=== PATIENT | male | born 1940 | race Caucasian/White ===

== ENCOUNTER 2021-05-07 16:56 | Emergency (ER) | payer MEDICARE ==
[2021-05-07] MEDS ORDERED: methylPREDNISolone SOD SUCCI 125 MG/2 ML VIAL IM ONE (20:14)
[2021-05-07] MEDS ORDERED: CYCLOBENZAPRINE 10 MG TAB PO STA (20:14)
[2021-05-07] MEDS ORDERED: HYDROcodone/APAP 5-325MG 1 EACH TAB PO STA (20:14)
--- NOTE | 2021-05-07 20:17 | ED ---
General Adult HPI - General Source: patient Mode of arrival: ambulatory Limitations: no limitations <Nevaeh Merida - Last Filed: 05/07/21 20:33> <Anita Mercer - Last Filed: 05/14/21 15:13> - General Chief complaint: Back Pain/Injury Stated complaint: Back Pain Time Seen by Provider: 05/07/21 19:43 - History of Present Illness Initial comments: 80 year-old male patient presents to the emergency department for evaluation of right low back pain with radiation down the right leg. Patient states that he has been having problems with back pain for the last couple of years. States he had back surgery last year on 04/29 and has been having problems since. States that he is taking pain medication which includes, tramadol, skelaxin, and neurontin without any relief. States that he has tried to contact his surgeon and his new back specialist but he is getting nowhere. He no longer wants to be seen by his physicians at [facility], he wants to get "new eyes" to look at him. He denies any change to his pain in the last couple of months. Denies any saddle anesthesia, loss of bowel or bladder control, numbness or tingling to the lower extremities. Denies any abdominal pain, fever, or chills. Denies any new injury. (Nevaeh Merida) - Related Data Previous Rx's Medication Instructions Recorded Cyclobenzaprine [Flexeril] 10 mg PO TID #15 tab 05/07/21 HYDROcodone/APAP 5-325MG [[place] 5] 1 each PO Q6HR PRN #12 tab 05/07/21 predniSONE 50 mg PO DAILY #5 tablet 05/07/21 Allergies Allergy/AdvReac Type Severity Reaction Status Date / Time No Known Allergies Allergy Verified 05/07/21 18:55 Review of Systems ROS Other: All systems not noted in ROS Statement are negative. <Nevaeh Merida - Last Filed: 05/07/21 20:33> ROS Other: All systems not noted in ROS Statement are negative. <Anita Mercer - Last Filed: 05/14/21 15:13> ROS Statement: Those systems with pertinent positive or pertinent negative responses have been documented in the HPI. Past Medical History History of Any Multi-Drug Resistant Organisms: None Reported Additional Past Surgical History / Comment(s): back surgery Past Psychological History: No Psychological Hx Reported Smoking Status: Never smoker Past Alcohol Use History: None Reported Past Drug Use History: None Reported <Nevaeh Merida - Last Filed: 05/07/21 20:33> General Exam Limitations: no limitations General appearance: alert, in no apparent distress, other (This is a well- developed, well-nourished elderly male patient in no acute distress. Vital signs upon presentation are temperature 98.1F, pulse 64, respirations 19, blood pressure 158/75, pulse ox 96% on room air.) Respiratory exam: Present: normal lung sounds bilaterally. Absent: respiratory distress, wheezes, rales, rhonchi, stridor Cardiovascular Exam: Present: regular rate, normal rhythm, normal heart sounds. Absent: systolic murmur, diastolic murmur, rubs, gallop, clicks GI/Abdominal exam: Present: soft, normal bowel sounds. Absent: distended, tenderness, guarding, rebound, rigid Extremities exam: Present: normal inspection, full ROM, normal capillary refill, other (Skin to the lower extremities is pink, warm, dry. Cap refill less than 3 seconds. Pedal and posttibial pulses 2+. ). Absent: tenderness, pedal edema, joint swelling, calf tenderness Neurological exam: Present: alert, oriented X3, CN II-XII intact, other (Strength to the lower extremities is 5/5.) Psychiatric exam: Present: normal affect, normal mood Skin exam: Present: warm, dry, intact, normal color. Absent: rash <Nevaeh Merida - Last Filed: 05/07/21 20:33> Course Vital Signs 05/07/21 05/07/21 18:51 20:34 Temperature 98.1 F 98.0 F Pulse Rate 64 67 Respiratory 19 20 Rate Blood Pressure 158/75 156/79 O2 Sat by Pulse 96 97 Oximetry Medical Decision Making <Nevaeh Merida - Last Filed: 05/07/21 20:33> <Anita Mercer - Last Filed: 05/14/21 15:13> - Medical Decision Making 80-year-old male patient presented to the emergency department today for evaluation of right low back pain with radiation down the right leg. Physical examination is unremarkable. He is neurologically intact. No focal deficits. Has no concerning symptoms for cauda equina. Patient came to the emergency department today hoping to have a new evaluation by new providers due to being unhappy with his current back specialist. I did review recent x-rays of the hip, lumbar spine which showed no acute abnormalities. I reviewed MRI from December 2020 which did show severe degenerative disc disease with severe spinal canal stenosis and disc bulging. I did discuss these results with the patient and discussed that his pain could be related to these findings. We will change his pain medication and a course of steroids. He is recommended to local spine specialty and pain management. Daughter is present. He will be discharged to follow-up as soon as possible. Return parameters were discussed in detail. He verbalizes understanding and agrees with this plan. Case discussed with my attending Dr. Mercer. (Nevaeh Merida) I was available for consultation in the emergency department. The history and physical exam were done by the midlevel provider. I was consulted for this patients care. I reviewed the case with the midlevel provider and based on their presentation of the patient, I agree with the assessment, medical decision making and plan of care as documented. Chart was dictated using [employer] dictation software. Attempts were made to correct any dictation errors however some typographical errors may persist. (Anita Mercer) Disposition Is patient prescribed a controlled substance at d/c from ED?: No Time of Disposition: 20:16 <Nevaeh Merida - Last Filed: 05/07/21 20:33> <Anita Mercer - Last Filed: 05/14/21 15:13> Clinical Impression: Lumbar radiculopathy, right, Back pain Disposition: HOME SELF-CARE Condition: Good Instructions (If sedation given, give patient instructions): Lumbar Radiculopathy (ED), Chronic Back Pain (DC) Additional Instructions: Stop the Skelaxin and Ultram. Start to new medications. Continue taking Neurontin. Follow-up with the specialist as soon as possible. Return for any new, worsening, or concerning symptoms. Prescriptions: Cyclobenzaprine [Flexeril] 10 mg PO TID #15 tab HYDROcodone/APAP 5-325MG [[place] 5] 1 each PO Q6HR PRN #12 tab PRN Reason: Pain predniSONE 50 mg PO DAILY #5 tablet Referrals: Agusto Levi MD [Primary Care Provider] - 1-2 days Manas Garcia DO [Doctor of Osteopathic Medicine] - 1-2 days Glen Akins MD [STAFF PHYSICIAN] - 1-2 days
[2021-05-07 20:37] VITALS: BP 156/79; PULSE 67; RESP 20; TEMP 98
== END 2021-05-07 20:42 | disposition home or self-care (01) ==
LOC: EC 16:56
DX: M54.16 Radiculopathy, lumbar region (principal)
CPT/HCPCS: 99283 ×2; 96372 ×2; J2930

== ENCOUNTER → 2021-05-20 | Outpatient (CLI) | payer MEDICARE ==
--- NOTE | 2021-05-20 12:20 | P.PAINCN ---
History of Present Illness - Reason for Consult Consult date: 05/20/21 - Chief Complaint Low back pain - History of Present Illness Petros and his 80-year-old male presenting to clinic today for initial evaluation for low back pain. Dr. Gilbert's and is referred into her office for treatment of his chronic low back pain. He reports the onset was no injuries pain is just increased over time. Most his pain is located on his right side in his buttocks area with occasional radiation down to the right lateral portion of his thigh. He describes it as a sharp dull achy sensation with occasional numbness. Pain is aggravated with increased standing and walking. Pain is relieved with rest and his medications. He is currently prescribed gabapentin as well as some [place]. In the past he's had physical therapy with little benefit. He rates his pain as an 8 out of 10 on average. Approximate 1 year ago he had laminectomy in the lumbar region bilateral L4 5 and right sided L5-S1. She reports he's had significant pain since that surgery. Patient also stated that after surgery while still under anesthesia in an episode of cardiac arrest which was he was revived. He describes no bowel or bowel dysfunction, he denies any saddle anesthesia, or any other red flag symptoms. Past Medical History Additional Past Medical History / Comment(s): back pain,spouse not sure of heart problems-said "no problems prior to back surgery" History of Any Multi-Drug Resistant Organisms: None Reported Past Surgical History: AICD, Back Surgery Additional Past Surgical History / Comment(s): back surgery Past Anesthesia/Blood Transfusion Reactions: No Reported Reaction Additional Past Anesthesia/Blood Transfusion Reaction / Comm: no hx blood transfusion Type of Cardiac Device: AICD Device Placement Date:: unk Past Psychological History: No Psychological Hx Reported Smoking Status: Former smoker Past Alcohol Use History: Occasional Additional Past Alcohol Use History / Comment(s): quit smoking years ago Past Drug Use History: None Reported - Past Family History Mother Family Medical History: No Reported History Medications and Allergies Home Medications Medication Instructions Recorded Confirmed Type Amitriptyline HCl [Elavil] 25 mg PO HS 05/20/21 05/20/21 History Apixaban [Eliquis] 5 mg PO BID 05/20/21 05/20/21 History Gabapentin [Neurontin] 100 mg PO Q6HR 05/20/21 05/20/21 History Metaxalone [Skelaxin] 800 mg PO TID 05/20/21 05/20/21 History Metoprolol Succinate [Toprol XL] 25 mg PO DAILY 05/20/21 05/20/21 History Sertraline [Zoloft] 50 mg PO DAILY 05/20/21 05/20/21 History traMADol HCl [Ultram] 50 mg PO Q6HR PRN 05/20/21 05/20/21 History Allergies Allergy/AdvReac Type Severity Reaction Status Date / Time No Known Allergies Allergy Verified 05/18/21 15:30 Physical Exam Physical Examinations : -Constitutiona : Cooperative , not in acute distress . -HEENT : nech : supple , no Lymphadenopathy , normal thyroid size . : eyes : no ptosis , no icterus, no photophobia . - neurologic : Cranial nerve II to XII intact , no focal neurological deffecit . -psychatric : alert , oriented X 3 , appropriate affect , intact judgment and insight . -Lymphatic : no Lymphadenopathy . - musculoskeltal : Lumber spine moter stegnth lower extremities ,thigh and legs 5/5 Right side , 5/5 Left side deep tendon reflexes : normal Knee Jerk , normal ankle Jerk lumber facet Loading Test =positive Right , positive Left Range of motion of the lumbar spine Flexion 30 degrees, extension 10 degrees strait leg raising test = negative Fabere test= negative Minute tenderness over the Sacroiliac joint on the Right , and Left sides Gaenslen test= negative Seated flexion test= Carissa Distraction test= negative bilaterally Sacroiliac compression test= negative bilaterally Lumbar paraspinal muscles tender to palpation bilaterally Well-healed lumbar surgical scar Assessment and Plan Assessment: Assessment: 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 -Tobacco use is negative -Patient's has not received pneumococcal vaccine. -Advanced care planning discussed, patient not eligible. -Opiate contract not signed. -Pain positive and follow-up visit/procedure is scheduled. -Patient's blood pressure measured [156/73 ] , and documented in the record ,and patient will follow up with the primary care. -Patient's weight was measured and body mass index above the normal limits and counseling was done. and patient instructed to follow-up with the primary care physician. -Patient was not identified as an unhealthy alcohol user Time with Patient: Greater than 30 PQRS Measure Charge Sheet - Pain Location Back Non-Pharmacological Interventions: Home Exercise, Inactivity, Physical Therapy, Stretching Pharmacological Interventions: Medication, PRN Medication PQRS Narrative: Scale Used Numeric (1 - 10) Hx Alcohol Use (MH) Yes Home Medications: Ambulatory Orders Amitriptyline HCl [Elavil] 25 mg PO HS 05/20/21 Apixaban [Eliquis] 5 mg PO BID 05/20/21 Gabapentin [Neurontin] 100 mg PO Q6HR 05/20/21 Metaxalone [Skelaxin] 800 mg PO TID 05/20/21 Metoprolol Succinate [Toprol XL] 25 mg PO DAILY 05/20/21 Sertraline [Zoloft] 50 mg PO DAILY 05/20/21 traMADol HCl [Ultram] 50 mg PO Q6HR PRN 05/20/21
[2021-05-20 12:50] VITALS: BP 156/84; PULSE 60; RESP 18
== END ==
LOC: PNWHC3 10:05
PROVIDERS: ATTEND Student in an Organized Health Care Education/Training Program
DX: M47.816 Spondylosis without myelopathy or radiculopathy, lumbar region (principal); M96.1 Postlaminectomy syndrome, not elsewhere classified
CPT/HCPCS: 99211

== ENCOUNTER → 2021-05-25 | Outpatient (CLI) | payer MEDICARE ==
--- NOTE | 2021-05-26 17:01 | CT ---
EXAMINATION TYPE: CT lumbar spine wo con DATE OF EXAM: 05/25/2021 COMPARISON: Radiograph 05/14/2021 HISTORY: 80-year-old male Low back pain, pain to right buttock. TECHNIQUE: Contiguous axial scanning of the lumbar spine without IV contrast. Coronal and sagittal re constructions performed. CT DLP: 1432.6 mGycm Automated exposure control for dose reduction was used. FINDINGS: Slight dextroconvex curvature of the lumbar spine. Vertebral body heights are preserved. Hypertrophic facet arthropathy mid to lower lumbar spine. There are bilateral L5 pars interarticulari s defects demonstrated grade 1 anterolisthesis at L4-L5. Mild multilevel degenerative disc disease with disc bulging throughout. This is superimposed on a component of mild congenital spinal canal narrowing made and lower lumbar s pine with AP canal dimension of 1.1 cm. At L3-L4, changes contribute to moderate narrowing of the spinal canal. There is moderate left and mi ld right neuroforaminal stenosis. At L4-L5, moderate narrowing of the spinal canal. There is moderate right greater than left neurofora lesvia stenosis. At L5-S1, posterior disc bulge may abut the traversing S1 nerve roots on both sides. There is moderat e to severe right and [id number]-zh-[id number] left neuroforaminal stenosis. No significant spinal canal sten osis. There may be a small hiatal hernia partially visualized. Nonspecific lobulated lesion posterior right kidney measuring 2.0 cm. Liver ultrasound can attempt fu rther characterization. Sigmoid diverticulosis. IMPRESSION: 1. SLIGHT DEXTROCONVEX CURVATURE/SCOLIOSIS OF THE LUMBAR SPINE. 2. HYPERTROPHIC FACET ARTHROPATHY MID TO LOWER LUMBAR SPINE ALONG WITH BILATERAL L4 PARS DEFECTS WITH GRADE 1 ANTEROLISTHESIS AT L4-L5. 3. 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 4. THIS CONTRIBUTES TO MODERATE SPINAL CANAL STENOSIS AT L3-L4 AND L4-L5. 5. VARIABLE NEUROFORAMINAL STENOSES MID AND LOWER LUMBAR SPINE OUTLINED ABOVE. DISC BULGE AT L5-S1 MAY ABUT THE TRAVERSING S1 NERVE ROOTS ON BOTH SIDES. 6. NONSPECIFIC 2.0 CM LOBULATED POSTERIOR RIGHT LIVER LOBE LESION. LIVER ULTRASOUND RECOMMENDED TO AT TEMPT FURTHER CHARACTERIZATION.
== END | disposition home or self-care (01) ==
LOC: RADCTMAIN 13:32
PROVIDERS: ATTEND Orthopaedic Surgery
DX: M48.061 Spinal stenosis, lumbar region without neurogenic claudication (principal); M43.16 Spondylolisthesis, lumbar region; M47.816 Spondylosis without myelopathy or radiculopathy, lumbar region
CPT/HCPCS: 72131

== ENCOUNTER → 2021-06-16 | Outpatient (CLI) | payer MEDICARE ==
[2021-06-16 16:20] LABS: African American GFR (CKD) >90 (>60 ml/min/1.73 sqM); Blood Urea Nitrogen 18 mg/dL (9-20); Non-African American GFR(CKD) 79 (>60 ml/min/1.73 sqM)
--- NOTE | 2021-06-17 07:49 | CT ---
EXAMINATION TYPE: CT angio chest DATE OF EXAM: 06/16/2021 COMPARISON: None HISTORY: Personal history of PE. CT DLP: 419.7 mGycm CONTRAST: CT chest with contrast and 3D reconstruction with MIP imaging is performed with IV Contrast, patient injected with 100 mL of Isovue 370. Contrast-enhanced CT of the chest was performed through the course of the pulmonary arteries with filemon g and mediastinal window settings submitted. 3D reconstruction with MIP imaging was also performed. PULMONARY ARTERIES: The pulmonary arteries and their major tributaries are patent. I do not see mynor dence for sizable filling defect to suggest pulmonary embolic process. LUNGS: The lungs are clear and free of infiltrate. No evidence for atelectasis. No pulmonary nodule or mass is detected. No pleural effusion. MEDIASTINUM: Thoracic aorta is of normal caliber,however, evaluation is limited given timing of the contrast bolus. If there is concern for thoracic aortic pathology consider SUYAPA. Correlate clinicall y . The heart is not enlarged. No evidence for mediastinal mass. No mediastinal lymph nodes greater than 1cm. HILAR STRUCTURES: No evidence for mass. No hilar lymph nodes greater than 1 cm. UPPER ABDOMEN: No significant abnormality is seen. IMPRESSION: 1. No evidence for Pulmonary embolism at this time.
== END | disposition home or self-care (01) ==
LOC: RADCTMAIN 15:04
PROVIDERS: ATTEND Internal Medicine
DX: Z86.711 Personal history of pulmonary embolism (principal)
CPT/HCPCS: 82565; 84520; 71275; 36415; Q9967

== ENCOUNTER 2021-06-25 10:40 | Day surgery (SDC) | payer MEDICARE ==
[2021-06-23 17:11] VITALS: BMI 32.3
[2021-06-25 11:42] VITALS: TEMP 98
[2021-06-25] MEDS ORDERED: LACTATED RINGERS 1,000 ML IV ONE (11:43)
--- NOTE | 2021-06-25 13:14 | FL ---
EXAMINATION TYPE: FL guided pain mgmt statistic DATE OF EXAM: 06/25/2021 HISTORY: Fluoroscopy time 1 seconds of fluoroscopy provided. IMPRESSION: 1. Fluoroscopy time.
[2021-06-25] MEDS ORDERED: LACTATED RINGERS 1,000 ML IV SCH (13:15)
[2021-06-25] MEDS ORDERED: IV FLUID CONTINUATION 600 ML IV ONE (13:15)
[2021-06-25 13:35] VITALS: BP 135/76; PULSE 82; RESP 18
--- NOTE | 2021-06-25 14:11 | P.PCN ---
Date of Procedure: 06/25/21 Description of Procedure: Patient scheduled for L4-L5 epidural steroid injection under fluoroscopic guidance but patient had laminectomy at lumbar L4-L5, and right side L5-S1 levels on 04/29/2020 at [facility] as per patient. Caudal epidural procedure discussed with the patient, due to insurance issues procedure was canceled. L4-L5 epidural steroid injection was canceled due to increased risk of dural puncture secondary to scarring around that area. Discussed with patient, and family.
== END 2021-06-25 13:59 | disposition home or self-care (01) ==
LOC: ORPAIN 10:40
DX: M51.16 Intervertebral disc disorders with radiculopathy, lumbar region (principal); Z53.9 Procedure and treatment not carried out, unspecified reason

== ENCOUNTER → 2021-07-16 | Outpatient (CLI) | payer MEDICARE ==
[2021-07-16 14:36] VITALS: BP 137/77; PULSE 82; RESP 18; TEMP 98
--- NOTE | 2021-07-16 15:03 | P.PN ---
Subjective Progress Note Date: 07/16/21 This is 81-year-old male , she of chronic severe low back pain patient had lumbar laminectomy surgery , he continued to have severe low back pain . Most his pain is located on his right side in his buttocks area with occasional radiation down to the right lateral portion of his thigh. He describes it as a sharp dull achy sensation with occasional numbness. Pain is aggravated with increased standing and walking. Pain is relieved with rest and his medications. He is currently prescribed gabapentin as well as some [place]. In the past he's had physical therapy with little benefit. He rates his pain as an 8 out of 10 on average. Approximate 1 year ago he had laminectomy in the lumbar region bi lateral L4 5 and right sided L5-S1. She reports he's had significant pain since that surgery. Patient also stated that after surgery while still under anesthesia in an episode of cardiac arrest which was he was revived. He describes no bowel or bowel dysfunction, he denies any saddle anesthesia, or any other red flag symptoms. Physical Examinations : -Constitutiona : Cooperative , not in acute distress . -HEENT : nech : supple , no Lymphadenopathy , normal thyroid size . : eyes : no ptosis , no icterus, no photophobia . - neurologic : Cranial nerve II to XII intact , no focal neurological deffecit . -psychatric : alert , oriented X 3 , appropriate affect , intact judgment and insight . -Lymphatic : no Lymphadenopathy . - musculoskeltal : Lumber spine moter stegnth lower extremities ,thigh and legs 5/5 Right side , 5/5 Left side deep tendon reflexes : normal Knee Jerk , normal ankle Jerk lumber facet Loading Test =positive Right , positive Left Range of motion of the lumbar spine Flexion 30 degrees, extension 10 degrees strait leg raising test = negative Fabere test= negative Minute tenderness over the Sacroiliac joint on the Right , and Left sides Gaenslen test= negative Seated flexion test= Carissa Distraction test= negative bilaterally Sacroiliac compression test= negative bilaterally Lumbar paraspinal muscles tender to palpation bilaterally Well-healed lumbar surgical scar Assessment and Plan Assessment: 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
== END ==
LOC: PNWHC3 12:48
PROVIDERS: ATTEND Specialist
DX: M47.816 Spondylosis without myelopathy or radiculopathy, lumbar region (principal); M96.1 Postlaminectomy syndrome, not elsewhere classified
CPT/HCPCS: 99211

== ENCOUNTER 2021-09-01 12:51 | Day surgery (SDC) | payer MEDICARE ==
[2021-08-28 15:51] VITALS: BMI 34.5
[2021-09-01 13:13] VITALS: RESP 16; TEMP 98.6
[2021-09-01] MEDS: LACTATED RINGERS 1,000 ML IV SCH ×2 (13:13→13:41)
[2021-09-01] MEDS ORDERED: fentaNYL (PF) 50 MCG/ML 2 ML AMP ONE (13:42)
[2021-09-01] MEDS ORDERED: SODIUM CHLORIDE 0.9% (PF) 10 ML VIAL ONE (13:42)
[2021-09-01] MEDS ORDERED: MIDAZOLAM 2 MG/2 ML VIAL ONE (13:42)
[2021-09-01] MEDS ORDERED: methylPREDNISolone ACETATE 40 MG/ML 1 ML VIAL ONE (13:42)
[2021-09-01] MEDS ORDERED: IOPAMIDOL M200 10 ML VIAL ONE (13:42)
--- NOTE | 2021-09-01 14:02 | P.PCN ---
Date of Procedure: 09/01/21 Procedure(s) Performed: PREOP DIAGNOSIS: 1- Lumbar postlaminectomy syndrome. POSTOP DIAGNOSIS:1- Lumbar postlaminectomy syndrome. PROCEDURE: 1-Caudal epidural steroid injection with epidurolysis and epidurogram under fluoroscopic guidance. (Fluoroscopy images available in the radiology Department ) 2-caudal epidurogram. ANESTHESIA: Local with 1% lidocaine 3 ml ,and moderate sedation, with Versed 2 mg and fentanyl 50 g. EBL: Minimal. PROCEDURE INDICATION: The patient with post-laminectomy syndrome with low back pain and radiculopathy radiating down in both legs, here for a caudal epidural steroid injection with epidurolysis. PROCEDURE DESCRIPTION: The patient was seen and identified in the preoperative area. Risks, benefits, complications, and alternatives were discussed with the patient. The patient agreed to proceed with the procedure and signed the consent. IV was started, and vital signs were stable. Patient was taken to the OR and time out was completed. The patient was placed in the prone position on procedure table and a pillow was placed under the abdomen to reduce lumbar lordosis. The lumbosacral area was prepped and draped in the usual sterile fashion. Vital signs were closely monitored during the procedure. lateral view and the anterior-posterior plates of the sacrum were identified with infiltration of the area overlying the sacral hiatus with 1% lidocaine .A 17 gauge RK epidural needle was used to advance through the sacral hiatus into the caudal epidural space. Omnipaque 180 dye. 2cc was injected and the position of the needle was verified to be in the midline. A Racz catheter was introduced into the epidural space and was advanced towards the L3-4 interspace under direct fluoroscopic guidance. Multiple passes were made with the catheter for lysis of epidural adhesions. Depo-Medrol 60 mg with 3ml of preservative free Lidocaine 1% and 5 ml of preservative free normal saline was injected slowly. Additional spread was seen to L3 under fluoroscopy. The needle and the catheter were withdrawn intact. EPIDUROGRAM: Omnipaque 180 mg dye 2 ml was injected with spread of the dye into the caudal epidural space and with spread cutoff at L3-4 prior to epidurolysis. Post epidurolysis dye 2 ml was injected and spread was seen to L3-4.There was further spread of the solution together with the dye above the L3 COMPLICATIONS: None. DISPOSITION / PLANS: The patient was placed in a supine position and transferred to the recovery area in a stable condition for observation and was discharged from the recovery room after meeting discharge criteria. Home discharge instructions given to the patient by the staff. The patient was reexamined prior to discharge. The patient will schedule a follow up in the clinic in 2-4 weeks.
--- NOTE | 2021-09-01 14:23 | FL ---
EXAMINATION TYPE: FL guided pain mgmt statistic DATE OF EXAM: 09/01/2021 HISTORY: Fluoroscopy time 3 seconds of fluoroscopy provided. IMPRESSION: 1. Fluoroscopy time.
[2021-09-01 14:27] VITALS: BP 164/75; PULSE 74
[2021-09-01] MEDS ORDERED: IV FLUID CONTINUATION 1,000 ML IV ONE (14:29)
== END 2021-09-01 14:37 | disposition home or self-care (01) ==
LOC: ORPAIN 12:51
PROVIDERS: ATTEND Specialist
DX: M48.061 Spinal stenosis, lumbar region without neurogenic claudication (principal); M96.1 Postlaminectomy syndrome, not elsewhere classified; I25.10 Atherosclerotic heart disease of native coronary artery without angina pectoris
CPT/HCPCS: 62264; J2250; J1030; J3010; Q9966; C1894; 99152

== ENCOUNTER 2021-10-15 12:06 | Day surgery (SDC) | payer MEDICARE ==
[2021-10-13 10:05] VITALS: BMI 35.9
[~2021-10-15 12:06] MED LIST: LIDOCAINE 1% (10MG/ML) FOR IV START INTRADERMA PRN
[2021-10-15 13:07] VITALS: TEMP 98.7
[2021-10-15] MEDS: LACTATED RINGERS 1,000 ML IV SCH ×2 (13:13→13:24)
[2021-10-15] MEDS ORDERED: fentaNYL (PF) 50 MCG/ML 2 ML AMP ONE (13:26)
[2021-10-15] MEDS ORDERED: methylPREDNISolone ACETATE 40 MG/ML 1 ML VIAL ONE (13:26)
[2021-10-15] MEDS ORDERED: IOPAMIDOL M200 10 ML VIAL ONE (13:26)
[2021-10-15] MEDS ORDERED: MIDAZOLAM 2 MG/2 ML VIAL ONE (13:26)
--- NOTE | 2021-10-15 13:42 | P.PCN ---
Date of Procedure: 10/15/21 Procedure(s) Performed: PREOP DIAGNOSIS: 1- Lumbar postlaminectomy syndrome. POSTOP DIAGNOSIS:1- Lumbar postlaminectomy syndrome. PROCEDURE: 1-Caudal epidural steroid injection with epidurolysis and epidurogram under fluoroscopic guidance. (Fluoroscopy images available in the radiology Department ) 2-caudal epidurogram. ANESTHESIA: Local with 1% lidocaine 3 ml ,and moderate sedation, with Versed 2 mg and fentanyl 100 g. EBL: Minimal. PROCEDURE INDICATION: The patient with post-laminectomy syndrome with low back pain and radiculopathy radiating down in both legs, here for a caudal epidural steroid injection with epidurolysis. PROCEDURE DESCRIPTION: The patient was seen and identified in the preoperative area. Risks, benefits, complications, and alternatives were discussed with the patient. The patient agreed to proceed with the procedure and signed the consent. IV was started, and vital signs were stable. Patient was taken to the OR and time out was completed. The patient was placed in the prone position on procedure table and a pillow was placed under the abdomen to reduce lumbar lordosis. The lumbosacral area was prepped and draped in the usual sterile fashion. Vital signs were closely monitored during the procedure. lateral view and the anterior-posterior plates of the sacrum were identified with infiltration of the area overlying the sacral hiatus with 1% lidocaine .A 17 gauge RK epidural needle was used to advance through the sacral hiatus into the caudal epidural space. Omnipaque 180 dye. 2cc was injected and the position of the needle was verified to be in the midline. A Racz catheter was introduced into the epidural space and was advanced towards the L2-3 interspace under direct fluoroscopic guidance. Multiple passes were made with the catheter for lysis of epidural adhesions. Depo-Medrol 60 mg with 3ml of preservative free Lidocaine 1% and 5 ml of preservative free normal saline was injected slowly. Additional spread was seen to L3 under fluoroscopy. The needle and the catheter were withdrawn intact. EPIDUROGRAM: Omnipaque 180 mg dye 2 ml was injected with spread of the dye into the caudal epidural space and with spread cutoff at L3-4 prior to epidurolysis. Post epidurolysis dye 2 ml was injected and spread was seen to L2-3.There was further spread of the solution together with the dye above the L3 COMPLICATIONS: None. DISPOSITION / PLANS: The patient was placed in a supine position and transferred to the recovery area in a stable condition for observation and was discharged from the recovery room after meeting discharge criteria. Home discharge instructions given to the patient by the staff. The patient was reexamined prior to discharge. The patient will schedule a follow up in the clinic in 2-4 weeks.
[2021-10-15] MEDS ORDERED: IV FLUID CONTINUATION 1,000 ML IV ONE (13:46)
--- NOTE | 2021-10-15 13:54 | FL ---
EXAMINATION TYPE: FL guided pain mgmt statistic DATE OF EXAM: 10/15/2021 HISTORY: Fluoroscopy time 3 seconds of fluoroscopy provided. IMPRESSION: 1. Fluoroscopy time.
[2021-10-15 14:06] VITALS: BP 150/78; PULSE 71; RESP 18
== END 2021-10-15 14:25 | disposition home or self-care (01) ==
LOC: ORPAIN 12:06
PROVIDERS: ATTEND Specialist
DX: M96.1 Postlaminectomy syndrome, not elsewhere classified (principal); M54.16 Radiculopathy, lumbar region
CPT/HCPCS: 62264; J2250; J1030; J3010; Q9966; C1894; 99152

== ENCOUNTER → 2021-11-04 | Outpatient (CLI) | payer MEDICARE ==
[2021-11-04 13:03] VITALS: BP 167/70; PULSE 66; RESP 18
--- NOTE | 2021-11-04 13:11 | P.PN ---
Subjective Progress Note Date: 11/04/21 Principal diagnosis: A 81 yr old male with daughter at side with a history of severe and chronic low back pain secondary to lumbar degenerative disc diseases and lumbar spondylosis with facet arthropathy presents today for evaluation s/p caudal DINORAH #2. Patient states he experienced 80% pain relief status post procedure. Pain level is currently at 6 out of 10 in intensity, localized in the lower back with radiation of sharp pain down the right lower extremity. Right lower extremities is also accompanied with on and off numbness. Pain has unknown provocative factors. Pain is alleviated with medications, lidocaine patches, topicals, injections, ice, heat, physical therapy in March 2021, home stretching regimen, massage therapy integrator with PT and rest. Patient states he is also interested in restarting physical therapy. Interventional pain procedures completed include Caudal DINORAH w lysis Patient is currently on Neurontin by Dr Garcia. Patient denies any side effects of the medication(s), denies excessive drowsiness or sleepiness, denies suicidal ideation and reports that the current pain medication is helping to control the pain and improve activities of daily living. Patient denies any motor or sensory deficits. Patient denies any fever or night sweats, denies any change in the bowel movements or urination. Physical Examination: -Constitutional: Cooperative. Not in acute distress . -HEENT: Neck is supple. No lymphadenopathy. No thyromegaly. Normal thyroid size. Eyes: No ptosis , no icterus, no photophobia. ENT: No auditory deficits. Normal oropharynx. No Thrush. - Respiratory: Chest clear to auscultations bilaterally. No wheezing. No rhonchi. - Cardiovascular: Regular rate and rhythm. S1 / S2 , no S3 , no S4. - Gastrointestinal: Abdomen soft no tenderness. Bowel sounds positive in all four quadrants. No organomegaly. - Genitourinary: Deferred. - Neurologic: Cranial nerve II to XII intact. No focal neurological deficits. - Psychatric: Alert & oriented x 3. Matching mood & appropriate affect. Judgment and insight intact. - Lymphatic: No Lymphadenopathy. - Musculoskeletal: Cervical spine: Muscle bulk/ tone/ strength in the bilateral upper extremities normal. Facet loading test cervical area positive. Lumbar spine: Motor bulk/ tone/ strength lower extremities , thigh and legs : 5/5 Deep tendon reflexes : Normal Knee Jerk. Normal Ankle Jerk . Vertebral body tenderness to palpation over Lumbar Facet Loading Test positive Straight Leg Raise: positive at 30 degrees right side/ left side Gaenslen's Test positive Sacral spine : Severe tenderness over the Sacroiliac joint: right side / left side Range of motion: Flexion of the lumbar spine <60 degrees Range of motion: Extension of the lumbar spine <20 degrees Gaenslen's Test positive Luz test: positive right side / left side Assessment and plan: Chronic low back pain secondary to lumbar degenerative disc disease , lumbar spondylosis with facet arthropathy without myelopathy Recommendation of caudal DINORAH #3. May need a series of injections, up to 3 with a 6 month period, to obtain optimal pain relief. Risks, benefits of procedure discussed and patient verbalized understanding. Denies anticoagulants use. Denies medical history of diabetes. Recommendation of physical therapy for the lumbar spine 3 times a week 6 weeks Dx: M51.36 All patient questions answered MAPS reviewed and it was appropriate. I have spent 31 minutes on patient care today. Dr Akins was available by phone for the evaluation of this patient. The time was used to review the medical records including relevant urine studies and Prescription history (MAPs), review of the available imaging, evaluation and examination of the patient, coordination of care with the medical staff and if applicable referring physicians, as well as creation of the medical record Objective - Vital Signs Vital signs: Vital Signs Temp Pulse 66 11/04/21 12:58 Resp 18 11/04/21 12:58 BP 167/70 11/04/21 12:58 Pulse Ox 94 L 11/04/21 12:58 PQRS Measure Charge Sheet Mode of Arrival: Ambulatory - Pain Location Lower Back Non-Pharmacological Interventions: Heat, Ice, Massage, Physical Therapy, Position/Reposition Pharmacological Interventions: Epidural, Scheduled Medication PQRS Narrative: Blood Pressure 167/70 Pain Intensity [Lower Back] 6 Scale Used Numeric (1 - 10) Hx Alcohol Use (MH) Yes Home Medications: Ambulatory Orders Sertraline [Zoloft] 50 mg PO DAILY 05/20/21 traMADol HCl [Ultram] 50 mg PO Q6HR PRN 05/20/21 Cyclobenzaprine [Flexeril] 10 mg PO BID 06/23/21 Gabapentin [Neurontin] 300 mg PO TID 10/13/21 Metoprolol Succinate [Toprol XL] 50 mg PO DAILY 10/13/21
== END ==
LOC: PNWHC3 12:20
PROVIDERS: ATTEND Specialist
DX: M47.816 Spondylosis without myelopathy or radiculopathy, lumbar region (principal); M51.36 Other intervertebral disc degeneration, lumbar region; G89.29 Other chronic pain
CPT/HCPCS: 99211

== ENCOUNTER → 2022-07-22 | Outpatient (CLI) | payer MEDICARE ==
--- NOTE | 2022-07-22 11:55 | P.PAINPG ---
Subjective Progress Note Date: 07/22/22 Principal diagnosis: Lumbar back pain Mr. Ryan is a 82 -year-old pleasant male came to the [facility] pain clinic for follow-up visit. He had lumbar postlaminectomy syndrome. He received caudal epidural steroid injection on 12/08/2021 which gave him 100% pain relief so far. Lately his pain is getting worse sometimes radiating to his lower extremity. . Patient has ongoing pain for many years. Patient describes pain is aching, throbbing, constant type of pain. Pain is radiating to lower extremity sometimes.. Patient rated pain levels are 6 out of 10 in severity. With the help of medications pain levels are 3-6 out of 10 in severity. Activities making pain worse. Medications, resting, interventional procedures helping in relieving patient's pain. Patient pain some days better than others. Overall activities decreased secondary to pain. Because of the pain sometimes patient is feeling lack of sleep, interest, and energy. Denied any side effects with the medications. Denied any bowel or bladder problems at this time. Patient is not using any aids for walking support. Patient denies any suicidal or homicidal ideations intent or plan. Patient denies any auditory or visual hallucinations. Patient denied any red flag symptoms related to pain. He tried multiple rounds of physical therapy in the past along with conservative therapies. Objective - Exam General: Well-developed, well-nourished, no acute distress HEENT: Normocephalic, and atraumatic Neck: Supple, no neck swelling Psychiatric: Appropriate mood, and affect INSTALLATION SUPERINTENDENT: No focal neurological deficits Musculoskeletal: Upper extremity: Normal strength, and range of motion. Sensation grossly intact Lower extremity: Normal strength, and range of motion. Sensation grossly intact. Lumbar spine: Healed lumbar scar Paravertebral tenderness: positive Lumbar facet load test : positive Sacroiliac joint tenderness: Negative Thigh thrust test: Negative Straight leg raising test: Negative - Constitutional Constitutional Comment(s): 13 point review of symptoms negative except as mentioned in history of present illness Assessment and Plan Assessment: Lumbar postlaminectomy syndrome Lumbar radiculopathy Lumbar spondylosis without myelopathy Chronic pain syndrome Plan: #1 Diagnoses, prognosis, and multiple treatment options including but not limited to physical therapy, interventional therapy, adjunct medication therapy, narcotic medication, and surgical options were discussed with the patient. And all questions were answered to the patient's satisfaction. #2 treatment plan agreement : Patient was thoroughly discussed regarding the treatment options, alternatives, and importance of exercises as tolerated. Patient clearly understood. #3 Patient was counseled on importance of regular exercise. Including rocael chi, aerobic exercises as tolerated. Which helps for chronic pain, and overall well- being. associated with chronic pain, worsening inflammation, and smoking effects on liver, and medication metabolism. And encouraged to stop smoking. #4 investigations: MAPS- reviewed , urine drug test- none #5 diagnostic tests: None #6 consultation : None # 7 interventional procedures: Caudal epidural steroid injection . Procedure, complications, alternatives discussed with the patient. #8 medications None from the pain clinic #9 morphine milligrams equivalents dose ( MME) per day: 0 from the pain clinic. # 10 percussion massage device #11 disposition: scheduled to follow up with pain clinic in 4 weeks duration. Time with Patient: Less than 30 PQRS Measure Charge Sheet Measure #130: Documentation of Current Meds in Medical Chart: Patient's medications documented in chart Measure #226: Tobacco Use: Screen & Cessation Intervention: Pt not a tobacco user Measure #111: Pneumonia Vaccination: Pneumococcal vaccine administered or previously received Measure #47: Advance Care Plan: Advance care planning discussed & documented, plan or surrogate given Measure #412: Opioid Treatment Agreement: No documentation of signed opioid treatment agreement Measure #408: Opioid Therapy Follow-up Evaluation: Patient had NO f/u eval minimum every 3 months during opioid therapy Measure #317: Preventitive Care & Scrn High Bld Press & F/U: Normal blood pressure, f/u not required Measure #128: Body Mass Index (BMI) Screening & Follow-up: BMI documented within normal parameters Measure #131: Pain Assessment & Follow-up: Pain positive & plan documented Measure #431: Unhealthy Alcohol Use Preventative Care & Scrn: Patient not identified as an unhealthy alcohol user PQRS Narrative: Hx Alcohol Use (MH) Yes Home Medications: Ambulatory Orders Sertraline [Zoloft] 50 mg PO DAILY 05/20/21 traMADol HCl [Ultram] 50 mg PO Q6HR PRN 05/20/21 Cyclobenzaprine [Flexeril] 10 mg PO BID 06/23/21 Gabapentin [Neurontin] 300 mg PO TID 10/13/21 Controlled Substance Measures - Controlled Substance Measures Is patient prescribed a controlled substance at discharge?: No
[2022-07-22 14:18] VITALS: BP 159/75; PULSE 67; RESP 18; TEMP 98.1
== END ==
LOC: PNWHC3 11:03
DX: M47.26 Other spondylosis with radiculopathy, lumbar region (principal); G89.4 Chronic pain syndrome; M96.1 Postlaminectomy syndrome, not elsewhere classified
CPT/HCPCS: 99211

== ENCOUNTER 2022-10-28 12:13 | Day surgery (SDC) | payer MEDICARE ==
[2022-10-27 09:23] VITALS: BMI 35.8
[2022-10-28] MEDS: LACTATED RINGERS 1,000 ML IV SCH ×2 (12:43→13:12)
[2022-10-28 12:44] VITALS: TEMP 97.6
[2022-10-28] MEDS ORDERED: MIDAZOLAM 2 MG/2 ML VIAL ONE (13:14)
[2022-10-28] MEDS ORDERED: methylPREDNISolone ACETATE 80 MG/ML 1 ML VIAL ONE (13:14)
[2022-10-28] MEDS ORDERED: IOPAMIDOL M200 10 ML VIAL ONE (13:14)
[2022-10-28] MEDS ORDERED: fentaNYL (PF) 50 MCG/ML 2 ML AMP ONE (13:14)
--- NOTE | 2022-10-28 13:27 | P.PCN ---
Date of Procedure: 10/28/22 Description of Procedure: PREOPERATIVE DIAGNOSIS: Lumbar post laminectomy syndrome, and lumbar r adiculopathy. POSTOPERATIVE DIAGNOSIS: Lumbar post laminectomy syndrome, and lumbar radiculopathy. PROCEDURE: 1. Caudal epidural steroid injection under fluoroscopic guidance. 2. Caudal epidurogram. SURGEON: Vance Veras ANESTHESIA: Local with 1% lidocaine; IV sedation : Versed 1 mg and fentanyl 50 g Sedation supervision times: [id number] EBL: None. Specimens removed: None Complications: None Fluoroscopic image: saved to electronic medical records PROCEDURE INDICATION: Patient had a history of lumbar postlaminectomy syndrome, failed with conservative therapy. pain radiating distally returns for caudal epidural steroid injection. PROCEDURE DESCRIPTION: The patient was seen and identified in the preoperative area. Risks, benefits, complications, and alternatives were discussed with the patient. The patient agreed to proceed with the procedure and signed the consent. IV was started, and vital signs were stable. Patient was taken to the OR and time out was completed. The patient was placed in the prone position on procedure table and a pillow was placed under the abdomen to reduce lumbar lordosis. The lumbosacral area was prepped and draped in the usual sterile fashion. Critical pause was taken. Vital signs were closely monitored during the procedure. Using lateral fluoroscopy the anterior-posterior plates of the sacrum were identified and the skin and deeper tissues corresponding into sacrococcygeal ligament were anesthetized using approximately 3 mL of 1% lidocaine. Then under fluoroscopy, a 3-1/2-inch 20-gauge Tuohy epidural needle was guided through the sacrococcygeal ligament, and into the epidural space. After negative aspiration, a 2 mL of Isovue contrast dye was injected with epidurogram. Again after negative aspiration for CSF, blood, and with no paresthesias, Depo-Medrol 80mg, with 10ml of preservative free normal saline(total of 11ml) solution was injected with washout of epidurogram. Needle was withdrawn intact. Skin was cleansed, and bandage was applied. DISPOSITION / PLANS: The patient was placed in a supine position and transferred to the recovery area in a stable condition for observation and was discharged from the recovery room after meeting discharge criteria. Home discharge instructions given to the patient by the staff. The patient was reexamined prior to discharge. The patient will schedule a follow up in the clinic in 4 weeks.
[2022-10-28] MEDS ORDERED: IV FLUID CONTINUATION 700 ML IV ONE (13:29)
[2022-10-28 13:36] VITALS: RESP 16
[2022-10-28 13:55] VITALS: BP 123/70; PULSE 70
--- NOTE | 2022-10-28 14:09 | FL ---
EXAMINATION TYPE: FL guided pain mgmt statistic DATE OF EXAM: 10/28/2022 HISTORY: Fluoroscopy time 8 seconds of fluoroscopy provided. DAP [id number] IMPRESSION: 1. Fluoroscopy time.
== END 2022-10-28 14:01 | disposition home or self-care (01) ==
LOC: ORPAIN 12:13
DX: M96.1 Postlaminectomy syndrome, not elsewhere classified (principal); M51.16 Intervertebral disc disorders with radiculopathy, lumbar region; M47.26 Other spondylosis with radiculopathy, lumbar region; Z79.899 Other long term (current) drug therapy
CPT/HCPCS: 62323; J2250; J1040; J3010; Q9966

== ENCOUNTER → 2022-11-15 | Outpatient (CLI) | payer MEDICARE ==
[2022-11-15 11:25] VITALS: BP 160/84; PULSE 77; RESP 18
--- NOTE | 2022-11-15 15:30 | P.PAINPG ---
PQRS Measure Charge Sheet Comment: A 82 yr old male with a history of severe and chronic LBP secondary to post laminectomy syndrome presents today for evaluation s/p Caudal DINORAH. Pt states he experienced 80 % pain relief x 2 wks s/p procedure. Pain level is provoked at 1 /10 in intensity, constant, localized in the lumbar spine, dull in character w shooting towards the buttocks. Pain is provoked by lifting. Pain is alleviated with PT integrated w massage x 8wks in 2021, meds, injections, repositioning and rest. Interventional pain procedures completed include Caudal DINORAH Patient is currently on Tyl, Ibu Patient denies any side effects of the medication(s), denies excessive drowsiness or sleepiness, denies suicidal ideation and reports that the current pain medication is helping to control the pain and improve activities of daily living. Patient denies any motor or sensory deficits. Patient denies any fever or night sweats, denies any change in the bowel movements or urination. Physical Examination: -Constitutional: Cooperative. Not in acute distress . - Neurologic: Cranial nerve II to XII intact. No focal neurological defici ts. - Psychatric: Alert & oriented x 3. Matching mood & appropriate affect. Judgment and insight intact. - Musculoskeletal: Cervical spine: Muscle bulk/ tone/ strength in the bilateral upper extremities normal Vertebral body tenderness to palpation over Spurling test positive Distraction test positive Facet loading test positive TTP Thoracic spine Muscle bulk / tone/ strength in the bilateral paraspinal muscles normal Vertebral body tender to palpation over Facet loading test positive TTP Lumbar spine: Motor bulk/ tone/ strength lower extremities , thigh and legs : 5/5 Deep tendon reflexes : Normal Knee Jerk. Normal Ankle Jerk . Vertebral body tenderness to palpation over Lumbar Facet Loading Test positive Straight Leg Raise: positive at 30 degrees right side/ left side Gaenslen's Test positive Sacral spine : Severe tenderness over the Sacroiliac joint: right side / left side Range of motion: Flexion of the lumbar spine <60 degrees Range of motion: Extension of the lumbar spine <20 degrees Gaenslen's Test positive right side / left side Luz test: positive right side / left side Thigh Thrust Test positive right side / left side Sacral Thrust Test positive right side / left side Assessment and plan: Chronic LBP secondary to post laminectomy syndrome Pt obtained substantial pain relief w procedure. He may return to clinic on an as needed basis. All questions answered. I have spent less than 30 minutes on patient care today. Dr Akins was available by phone for the evaluation of this patient. The time was used to review the medical records including relevant urine studies and Prescription history (MAPs), review of the available imaging, evaluation and examination of the patient, coordination of care with the medical staff and if applicable referring physicians, as well as creation of the medical record PQRS Narrative: Hx Alcohol Use (MH) Yes Home Medications: Ambulatory Orders Sertraline [Zoloft] 50 mg PO HS 05/20/21 Metoprolol Succinate [Metoprolol Succinate ER] 25 mg PO DAILY 08/25/22 QUEtiapine FUMARATE [SEROquel] 25 mg PO HS PRN 08/25/22 lisinopriL [Zestril] 10 mg PO DAILY 08/25/22 Controlled Substance Measures - Controlled Substance Measures Is patient prescribed a controlled substance at discharge?: No
== END ==
LOC: PNWHC3 10:54
PROVIDERS: ATTEND Specialist
DX: M96.1 Postlaminectomy syndrome, not elsewhere classified (principal); G89.29 Other chronic pain
CPT/HCPCS: 99211

== ENCOUNTER → 2023-06-08 | Outpatient (CLI) | payer MEDICARE ==
[2023-06-08 11:57] VITALS: BP 179/67; PULSE 74; RESP 16
--- NOTE | 2023-06-08 14:46 | P.PAINPG ---
PQRS Measure Charge Sheet Comment: A 82 yr old male w daughter at side with a history of severe and chronic LBP secondary to post laminectomy syndrome presents today for evaluation. Pain level is provoked at 6 /10 in intensity, constant, localized in the lumbar spine, predominantly axial, dull in character w occasional shooting towards the back of the BLEs. Pain is provoked by lifting. Pain is alleviated with PT integrated w massage x 8 wks in 2021, physician guided exercises/ stretches daily x 6 mo, medications, injections, repositioning and rest. Oswestry Axial Pain Score of 27. Interventional pain procedures completed include DINORAH L4-L5 x1 (2020), Caudal DINORAH w Lysis x4 (last Sep 2022) Patient is currently on Tyl, Ibu Patient denies any side effects of the medication(s), denies excessive drowsiness or sleepiness, denies suicidal ideation and reports that the current pain medication is helping to control the pain and improve activities of daily living. Patient denies any motor or sensory deficits. Patient denies any fever or night sweats, denies any change in the bowel movements or urination. Physical Examination: -Constitutional: Cooperative. Not in acute distress . - Neurologic: Cranial nerve II to XII intact. No focal neurological deficits. - Psychatric: Alert & oriented x 3. Matching mood & appropriate affect. [place] gment and insight intact. - Musculoskeletal: Cervical spine: Muscle bulk/ tone/ strength in the bilateral upper extremities normal Vertebral body tenderness to palpation over Spurling test positive Distraction test positive Facet loading test positive TTP Thoracic spine Muscle bulk / tone/ strength in the bilateral paraspinal muscles normal Vertebral body tender to palpation over Facet loading test positive TTP Lumbar spine: Motor bulk/ tone/ strength lower extremities , thigh and legs : 5/5 Deep tendon reflexes : Normal Knee Jerk. Normal Ankle Jerk . Vertebral body tenderness to palpation over L5 Lumbar Facet Loading Test positive Straight Leg Raise: positive at 35 degrees right side/ left side Gaenslen's Test positive Sacral spine : Severe tenderness over the Sacroiliac joint: right side / left side Range of motion: Flexion of the lumbar spine <60 degrees Range of motion: Extension of the lumbar spine <20 degrees Gaenslen's Test positive right side / left side Luz test: positive right side / left side Thigh Thrust Test positive right side / left side Sacral Thrust Test positive right side / left side Assessment and plan: Chronic LBP secondary to post laminectomy syndrome Recommendation of Caudal DINORAH w Lysis. May need a series of injections for optimal pain relief. Risks, benefits of procedure discussed and patient verbalized understanding. Protocol for discontinuation/continuation of medications surrounding procedure discussed. All questions answered. I have spent less than 30 minutes on patient care today. Dr Akins was available by phone for the evaluation of this patient. The time was used to review the medical records including relevant urine studies and Prescription history (MAPs), review of the available imaging, evaluation and examination of the patient, coordination of care with the medical staff and if applicable referring physicians, as well as creation of the medical record - Pain Location Bilateral Lower Back Non-Pharmacological Interventions: Home Exercise, Physical Therapy, Position/Reposition, Sitting, Stretching Pharmacological Interventions: Epidural, PRN Medication, Topical Medication PQRS Narrative: Hx Alcohol Use (MH) Yes Home Medications: Ambulatory Orders Sertraline [Zoloft] 50 mg PO HS 05/20/21 Metoprolol Succinate [Metoprolol Succinate ER] 25 mg PO DAILY 08/25/22 QUEtiapine FUMARATE [SEROquel] 25 mg PO HS PRN 08/25/22 lisinopriL [Zestril] 10 mg PO DAILY 08/25/22 diazePAM [Valium] 5 mg PO DAILY PRN 1 Days #2 tab 06/08/23 Controlled Substance Measures - Controlled Substance Measures Is patient prescribed a controlled substance at discharge?: Yes When asked, does pt state using other controlled substances?: No If prescribed controlled substance>3 days was MAPS reviewed?: Prescribed <3 Days
== END ==
LOC: PNWHC3 11:06
PROVIDERS: ATTEND Specialist
DX: M96.1 Postlaminectomy syndrome, not elsewhere classified (principal); G89.29 Other chronic pain
CPT/HCPCS: 99211

== ENCOUNTER 2023-06-30 11:19 | Day surgery (SDC) | payer MEDICARE ==
[2023-06-29 09:54] VITALS: BMI 32.3
[~2023-06-30 11:19] MED LIST changes: +LACTATED RINGERS 1,000 ML IV SCH; -LIDOCAINE 1% (10MG/ML) FOR IV START INTRADERMA PRN
[2023-06-30 12:15] VITALS: RESP 18; TEMP 97.5
[2023-06-30] MEDS ORDERED: ROPIVACAINE 5MG/ML 20ML VIAL ONE (13:11)
[2023-06-30] MEDS ORDERED: methylPREDNISolone ACETATE 40 MG/ML 1 ML VIAL ONE (13:11)
--- NOTE | 2023-06-30 13:31 | P.PCN ---
Date of Procedure: 06/30/23 Procedure(s) Performed: PREOP DIAGNOSIS: 1- Lumbar postlaminectomy syndrome. POSTOP DIAGNOSIS:1- Lumbar postlaminectomy syndrome. PROCEDURE: 1-Caudal epidural steroid injection with epidurolysis and epidurogram under fluoroscopic guidance. (Fluoroscopy images available in the radiology Department ) 2-caudal epidurogram. ANESTHESIA: Local with 1% lidocaine 5 ml only EBL: Minimal. PROCEDURE INDICATION: The patient with post-laminectomy syndrome with low back pain and radiculopathy radiating down in both legs, here for a caudal epidural steroid injection with epidurolysis. PROCEDURE DESCRIPTION: The patient was seen and identified in the preoperative area. Risks, benefits, complications, and alternatives were discussed with the patient. The patient agreed to proceed with the procedure and signed the consent.. Patient was taken to the OR and time out was completed. The patient was placed in the prone position on procedure table and a pillow was placed under the abdomen to reduce lumbar lordosis. The lumbosacral area was prepped and draped in the usual sterile fashion. Vital signs were closely monitored during the procedure. lateral view and the anterior-posterior plates of the sacrum were identified with infiltration of the area overlying the sacral hiatus with 1% lidocaine .A 17 gauge RK epidural needle was used to advance through the sacral hiatus into the caudal epidural space. isoview 200 dye. 2cc was injected and the position of the needle was verified to be in the midline. A Racz catheter was introduced into the epidural space and was advanced towards the L2-3 interspace under direct fluoroscopic guidance. Multiple passes were made with the catheter for lysis of epidural adhesions. Depo-Medrol 40 mg with 3ml of preservative free Lidocaine 1% and 5 ml of preservative free normal saline was injected slowly. Additional spread was seen to L3 under fluoroscopy. The needle and the catheter were withdrawn intact. EPIDUROGRAM: isoview 200 mg dye, 2 ml was injected with spread of the dye into the caudal epidural space and with spread cutoff at L3-4 prior to epidurolysis. Post epidurolysis dye 2 ml was injected and spread was seen to L2- 3.There was further spread of the solution together with the dye above the L3 COMPLICATIONS: None. DISPOSITION / PLANS: The patient was placed in a supine position and transferred to the recovery area in a stable condition for observation and was discharged from the recovery room after meeting discharge criteria. Home discharge instructions given to the patient by the staff. The patient was reexamined prior to discharge. The patient will schedule a follow up in the clinic in 2-4 weeks.
[2023-06-30 13:51] VITALS: BP 151/66; PULSE 78
--- NOTE | 2023-06-30 13:55 | FL ---
EXAMINATION TYPE: FL guided pain mgmt statistic DATE OF EXAM: 06/30/2023 HISTORY: Fluoroscopy time Total dose area product (DAP) in uGy*m?, mGy*cm? (or similar): 0.93286 IMPRESSION: 1. Fluoroscopy time.
== END 2023-06-30 13:56 | disposition home or self-care (01) ==
LOC: ORPAIN 11:19
PROVIDERS: ATTEND Specialist
DX: M96.1 Postlaminectomy syndrome, not elsewhere classified (principal)
CPT/HCPCS: 62264; J1030; J2795; C1894

== ENCOUNTER → 2023-07-20 | Outpatient (CLI) | payer MEDICARE ==
[2023-07-20 12:35] LABS: ALT 14 U/L (4-49); AST 15 U/L (17-59); African American GFR (CKD) >90 (>60 ml/min/1.73 sqM); Albumin/Globulin Ratio 1.4; Alkaline Phosphatase 87 U/L (38-126); Anion Gap 10 mmol/L; Blood Urea Nitrogen 16 mg/dL (9-20); Calcium 9.7 mg/dL (8.4-10.2); Carbon Dioxide 25 mmol/L (22-30); Chloride 106 mmol/L (98-107); Globulin 2.8 g/dL; Glucose 108 mg/dL (74-99); Non-African American GFR(CKD) 83 (>60 ml/min/1.73 sqM); Potassium 4.5 mmol/L (3.5-5.1); Sodium 141 mmol/L (137-145); Total Bilirubin 0.4 mg/dL (0.2-1.3); Total Protein 6.8 g/dL (6.3-8.2)
--- NOTE | 2023-07-27 14:09 | CT ---
EXAMINATION TYPE: CT angio head neck DATE OF EXAM: 07/20/2023 1:43 PM COMPARISON: . CLINICAL INDICATION:Male, 83 years old with history of R42 DIZZINESS AND GIDDINESS; PHH, vertigo TECHNIQUE: Axially acquired helical CT angiogram of the head and neck was obtained with contrast. Axi al images are supplemented with 3D reconstructions which [facility] NASCET criteria used. Contrast used: 65 mL of Isovue 370 with IV Contrast, Oral contrast used: None. CT DLP: 1488.7 mGycm, Automated exposure control for dose reduction was used. FINDINGS: CTA Neck: A 3 vessel aortic arch is shown. Atherosclerotic mild plaque is present in the aortic arch and at the origin of the left subclavian without significant stenosis. Mostly calcified plaques at the origin a nd proximal to mid right subclavian artery without significant stenosis. Common carotids are patent. On the right, the bifurcation shows a moderate to large amount of circumferential mostly soft plaque in the proximal ICA reducing the lumen to 1.7 mm. Comparing to a more distal diameter measurement of 4.4 mm, this represents a 61% stenosis. On the left, there is mild mixed plaque at the proximal ICA w ithout hemodynamically significant stenosis (10%). There is otherwise no dissection or pseudoaneurysm present. There is mostly soft plaque at the origin of the right vertebral artery with approximately 45% diamet er stenosis. No significant atherosclerotic disease at the origin of the left vertebral artery. Right vertebral is dominant. Other: Mild scarring and senescent changes in the lung apices. No acute infiltrate or pneumothorax. P artially seen left chest pacemaker. Mild/moderate degenerative changes of the cervical spine. CTA Head: The anterior and posterior cerebral circulations are patent. No hemodynamically significan t stenosis, aneurysm, dissection, or arteriovenous malformation is shown. A small patent right P-comm is present. No enhancing left P-comm is seen. ICA bifurcations are both patent. The proximal aspects of the MCAs and ACAs are patent. Anterior communicating artery is present. The dural venous sinuses appear grossly patent without evidence of thrombosis. Other: Pre-contrast CT head: Areas of decreased attenuation are present in the periventricular and s ubcortical white matter bilaterally consistent with small vessel ischemic disease. Generalized cerebr al volume loss with commensurate enlargement of the ventricles, sulci, and cisterns is also present. There is no acute intracranial hemorrhage or evidence of acute infarction. No shift of the midline st ructures, mass effect, or extra-axial abnormalities are shown. Imaged portions of the paranasal sinuses and mastoid air cells are clear. The orbits appear intact. Radiodensities along the anterior globes suggestive of prior ophthalmologic surgery. Mild to moderate generalized brain atrophy and chronic microvascular ischemic white matter changes. There are no acut e fractures of the calvaria or scalp swelling. IMPRESSION: CTA neck: 1. No dissection or pseudoaneurysm detected in the carotid or vertebral arteries in the neck. 2. Atherosclerotic disease is present, with soft plaque in the proximal RIGHT ICA causing a 61% diam eter stenosis. 3. Mild mixed plaque at the proximal LEFT ICA without hemodynamically significant stenosis (10%). 4. Mostly soft plaque at the origin of the (dominant) right vertebral artery with approximately 45% diameter stenosis. No significant atherosclerotic disease at the origin of the left vertebral artery. CTA Head: 1. No intracranial major vascular occlusion or significant stenosis, or sizable aneurysm detected in the limits of CTA. 2. A small patent right P-comm is present. No enhancing left P-comm is seen Anterior communicating artery is present. 3. CT head shows mild/moderate brain atrophy and chronic microvascular ischemic white matter changes . No acute abnormality.
== END | disposition home or self-care (01) ==
LOC: RADCTMAIN 11:28
PROVIDERS: ATTEND Family Medicine
DX: I67.82 Cerebral ischemia (principal); R90.82 White matter disease, unspecified; G31.9 Degenerative disease of nervous system, unspecified; R42 Dizziness and giddiness
CPT/HCPCS: 80053; 70496; 70498; 36415; Q9967

== ENCOUNTER → 2023-12-12 | Outpatient (CLI) | payer MEDICARE ==
[2023-12-12 12:52] LABS: African American GFR (CKD) >90 (>60 ml/min/1.73 sqM); Blood Urea Nitrogen 21 mg/dL (9-20); Non-African American GFR(CKD) 85 (>60 ml/min/1.73 sqM)
--- NOTE | 2023-12-15 11:44 | CT ---
EXAMINATION TYPE: CT lumbar spine wo con CT DLP: hx of Lspine sx low back pain mGycm, Automated exposure control for dose reduction was used. DATE OF EXAM: 12/12/2023 1:40 PM COMPARISON: 05/25/2021. CLINICAL INDICATION:Male, 83 years old with history of R42 VERTIGO I65.23 CAROTID STEN Z98.890 HX L S URG; PHH, 931.9 TECHNIQUE: Multiple axial images were obtained from the midportion of T11 through the sacroiliac kun nts. Soft tissue and bone windows in coronal and sagittal planes were obtained and reviewed. Contrast used: mL of , (None, if empty). Oral contrast used: (None, if empty). FINDINGS: Alignment: There are 5 lumbar type vertebral bodies within normal alignment. Bone: Multilevel degeneration changes throughout the spine with osteophyte formation and disc space tearing with facet joint arthropathy. No evidence of fracture. Discs: T12-L1: No spinal canal or neural foraminal stenosis is identified. L1-L2: Facet joint arthropathy and disc bulging result with mild spinal canal stenosis and mild bilat eral neural foraminal stenosis. L2-L3: Facet joint arthropathy and disc bulging result with mild spinal canal stenosis and mild bilat eral neural foraminal stenosis. L3-L4: Facet joint arthropathy and disc bulging result with mild spinal canal stenosis and mild bilat eral neural foraminal stenosis. L4-L5: Facet joint arthropathy and disc bulging result with moderate spinal canal stenosis and modera te bilateral neural foraminal stenosis. L5-S1: Facet joint arthropathy and disc bulging result with mild spinal canal stenosis and mild moder ate right and mild left neural foraminal stenosis. Other: Atherosclerosis of the arterial vasculature. IMPRESSION: 1. No evidence for spinal fracture. 2. Multilevel degeneration changes with moderate L4-L5 spinal canal stenosis and moderate L4-L5 and b ilateral and right L5-S1 neural foraminal stenosis
--- NOTE | 2023-12-15 11:46 | CT ---
EXAMINATION TYPE: CT angio head CT DLP: 1290.8 mGycm, Automated exposure control for dose reduction was used. DATE OF EXAM: 12/12/2023 1:58 PM COMPARISON: 07/20/2023. CLINICAL INDICATION:Male, 83 years old with history of R42 VERTIGO I65.23 CAROTID STEN Z98.890 HX L S URG; PHH, Vertigo TECHNIQUE: CT angio head Axially acquired helical CT angiogram was obtained. Axial images are supplem ented with 3D reconstructions which were post-processed at an independent workstation. NASCET criteri a used. Contrast used:100 mL of Isovue 370 without and with IV Contrast, none Oral contrast used: none FINDINGS: Vertebral arteries: The vertebral arteries are patent. Vertebral artery dominance: Right Basilar artery: The basilar artery is intact. The basilar artery bifurcation is normal. Internal Carotid arteries: Atherosclerosis of the intracranial carotid arteries. The cervical, petrou s, cavernous and supraclinoid segments are normal. RUTH: Patent with no evidence of aneurysm. Hypoplastic right A1 segment. ACOM: Present without evidence of aneurysm. MCA: Patent with no evidence of aneurysm. COCONUT BOILER: Patent with no evidence of aneurysm. PCOM: Hypoplastic bilaterally. Dural sinuses: Patent. IMPRESSION: No evidence of high-grade stenosis or intracranial aneurysm.
== END | disposition home or self-care (01) ==
LOC: RADCTMAIN 11:50
PROVIDERS: ATTEND Psychiatry & Neurology Neurology
DX: M51.37 Other intervertebral disc degeneration, lumbosacral region (principal); M99.73 Connective tissue and disc stenosis of intervertebral foramina of lumbar region; I65.23 Occlusion and stenosis of bilateral carotid arteries; Z98.890 Other specified postprocedural states
CPT/HCPCS: 82565; 84520; 72131; 70496; 36415; Q9967

== ENCOUNTER → 2024-06-04 | Outpatient (CLI) | payer MEDICARE ==
[2024-06-04 13:38] VITALS: BP 151/81; PULSE 74; RESP 16; TEMP 97.3
--- NOTE | 2024-06-04 17:40 | P.PAINPG ---
Objective - Vital Signs Vital signs: Vital Signs Temp 97.3 F L 06/04/24 13:35 Pulse 74 06/04/24 13:35 Resp 16 06/04/24 13:35 BP 151/81 06/04/24 13:35 Pulse Ox 97 06/04/24 13:35 FiO2 Intake & Output 06/03/24 06/04/24 06/04/24 18:59 06:59 18:59 Weight 100.698 kg PQRS Measure Charge Sheet Mode of Arrival: Ambulatory Comment: An 83 yr old male w daughter at side with a history of severe and chronic LBP secondary to post laminectomy syndrome presents today for evaluation s/p Caudal DINORAH w Lysis. Pt states he experienced 95 % pain relief x 8 mo s/p procedure. Pain level is provoked at 6 /10 in intensity, constant, localized in the lumbar spine, predominantly axial, dull in character w occasional shooting towards the back of the BLEs. Pain is provoked by lifting. Pain is alleviated with PT integrated w massage x 8 wks in 2021, physician guided stretches daily since 2021, medications, topical, injections, heat, ice, repositioning and rest. Interventional pain procedures completed include DINORAH L4-L5 x1 (2020), Caudal DINORAH w Lysis x4 (Sep 2022, Jun 2023) Patient is currently on Tyl, Ibu, Icy-Hot Patient denies any side effects of the medication(s), denies excessive drowsiness or sleepiness, denies suicidal ideation and reports that the current pain medication is helping to control the pain and improve activities of daily living. Patient denies any motor or sensory deficits. Patient denies any fever or night sweats, denies any change in the bowel movements or urination. Physical Examination: -Constitutional: Cooperative. Not in acute distress . - Neurologic: Cranial nerve II to XII intact. No focal neurological deficits. - Psychatric: Alert & oriented x 3. Matching mood & appropriate affect. Judgment and insight intact. - Musculoskeletal: Cervical spine: Muscle bulk/ tone/ strength in the bilateral upper extremities normal Vertebral body tenderness to palpation over Spurling test positive Distraction test positive Facet loading test positive TTP Thoracic spine Muscle bulk / tone/ strength in the bilateral paraspinal muscles normal Vertebral body tender to palpation over Facet loading test positive TTP Lumbar spine: Motor bulk/ tone/ strength lower extremities , thigh and legs : 5/5 Deep tendon reflexes : Normal Knee Jerk. Normal Ankle Jerk . Vertebral body tenderness to palpation over L5 Lumbar Facet Loading Test positive Straight Leg Raise: positive at 35 degrees right side/ left side Gaenslen's Test positive Sacral spine : Severe tenderness over the Sacroiliac joint: right side / left side Range of motion: Flexion of the lumbar spine <60 degrees Range of motion: Extension of the lumbar spine <20 degrees Gaenslen's Test positive right side / left side Luz test: positive right side / left side Thigh Thrust Test positive right side / left side Sacral Thrust Test positive right side / left side Assessment and plan: Chronic LBP secondary to post laminectomy syndrome Recommendation of Caudal DINORAH w Lysis. May need a series of injections for optimal pain relief. Risks, benefits of procedure discussed and patient verbalized understanding. Protocol for discontinuation/continuation of medications surrounding procedure discussed. All questions answered. I have spent less than 30 minutes on patient care today. Dr Akins was available by phone for the evaluation of this patient. The time was used to review the medical records including relevant urine studies and Prescription history (MAPs), review of the available imaging, evaluation and examination of the patient, coordination of care with the medical staff and if applicable referring physicians, as well as creation of the medical record - Pain Location Bilateral Lower Back Non-Pharmacological Interventions: Heat, Ice, Inactivity, Physical Therapy, Position/Reposition, Sitting Pharmacological Interventions: Epidural, PRN Medication, Topical Medication PQRS Narrative: Blood Pressure 151/81 Pain Intensity [Bilateral 5 Lower Back] Scale Used Numeric (1 - 10) Hx Alcohol Use (MH) Yes Home Medications: Ambulatory Orders Metoprolol Succinate [Metoprolol Succinate ER] 25 mg PO DAILY 08/25/22 QUEtiapine FUMARATE [SEROquel] 25 mg PO HS PRN 08/25/22 lisinopriL [Zestril] 10 mg PO DAILY 08/25/22 diazePAM [Valium] 5 - 10 mg PO ONCE PRN 06/29/23 Controlled Substance Measures - Controlled Substance Measures Is patient prescribed a controlled substance at discharge?: No
== END ==
LOC: PNWHC3 13:20
PROVIDERS: ATTEND Specialist
DX: M96.1 Postlaminectomy syndrome, not elsewhere classified (principal)
CPT/HCPCS: 99211

== ENCOUNTER → 2024-06-19 | Day surgery (SDC) | payer MEDICARE ==
[2024-06-18 10:54] VITALS: BMI 35.9
[~2024-06-19] MED LIST changes: +IOPAMIDOL M300 15ML VIAL ONE; -LACTATED RINGERS 1,000 ML IV SCH; +methylPREDNISolone ACETATE 80 MG/ML 1 ML VIAL ONE
[2024-06-19 11:47] VITALS: TEMP 97.9
[2024-06-19] MEDS: LACTATED RINGERS 1,000 ML IV SCH (12:00)
[2024-06-19] MEDS: IV FLUID CONTINUATION 1,000 ML IV ONE ×2 (12:00→14:35)
[2024-06-19 13:19] VITALS: RESP 16
--- NOTE | 2024-06-19 13:19 | FL ---
EXAMINATION TYPE: FL guided pain mgmt statistic DATE OF EXAM: 06/19/2024 HISTORY: Fluoroscopy time Total dose area product (DAP) in uGy*m?, mGy*cm? (or similar): 422809 IMPRESSION: 1. Fluoroscopy time. [facility], , 06/19/2024 1:16 PM
--- NOTE | 2024-06-19 13:22 | P.PCN ---
Description of Procedure: Preprocedure diagnosis. Postlaminectomy syndrome. Lumbar radiculopathy. Postprocedure diagnosis. As above. Procedure done. Injection of radiocontrast material into caudal epidural space. Caudal epidurogram. Lysis of epidural scar with brevi cath catheter. Caudal epidural steroid injection. Anesthesia. Local infiltration anesthesia. Continuous pulse ox, EKG, blood pressure, verbal communication was maintained with the patient in OR Blood loss. None. Indication. Discussed the procedure and possible complications which may include infection bleeding nerve damage paralysis and aggravation of pain. Patient understands all questions were answered. Procedure note. IV antibiotic was given preoperative area. After getting consent patient was taken to the OR in prone position. Back prepped with chlorhexidine x 3. After injecting 10 cc of plain 1% lidocaine subcutaneously, a 17-gauge needle with flexible introducer plastic cannula was introduced through the sacral hiatus into the caudal epidural space. 5 cc of Isovue 300 contrast was injected. Contrast was deficient on the left & right side at L5-S1 area. Needle was taken out only keeping the flexible introducer cannula. 19- gauge brevi cath was introduced through the introducer cannula multiple times. Again 3 cc of Isovue-M 300 contrast was injected. Previous deficient contrast area was filled out this time. 3 cc solution was injected through the bravi cath cannula now. Solution consists of 2 cc of preservative-free normal saline mixed with 1 cc of 80 mg Depo-Medrol. Both the catheter and introducer cannula was removed. Disposition. Patient tolerated the procedure well. No complication. Discharged home in stable condition.
[2024-06-19] MEDS: KETOROLAC 15 MG/ML 1 ML VIAL IVP STA (13:52)
[2024-06-19 14:35] VITALS: BP 163/73; PULSE 76
== END ==
LOC: ORPAIN 10:38
PROVIDERS: ATTEND Pain Medicine Interventional Pain Medicine
DX: M96.1 Postlaminectomy syndrome, not elsewhere classified (principal); M54.16 Radiculopathy, lumbar region
CPT/HCPCS: 62322; J1885; 62264

== ENCOUNTER → 2025-01-03 | Outpatient (CLI) | payer MEDICARE ==
[2025-01-03 15:29] LABS: HCT 42.7 % (39.6-50.0); HGB 13.8 g/dL (13.0-17.0); MCH 29.3 pg (27.0-32.0); MCHC 32.3 g/dL (32.0-37.0); MCV 90.7 FL (80.0-97.0); Mean Platelet Volume 12.2 FL (9.5-12.2); NRBC Per 100 WBC 0 X 10*3/uL (0.00-0.01); Platelet Count 230 X 10*3/uL (140-440); RBC 4.71 X 10*6/uL (4.40-5.60); RDW 12.9 % (11.5-14.5); WBC 9.15 X 10*3/uL (4.50-10.00)
[2025-01-03 19:28] LABS: Blood Urea Nitrogen 15.8 mg/dL (9.0-27.0); Chloride 109 mmol/L (96-109); Potassium 4.5 mmol/L (3.5-5.5); Sodium 144 mmol/L (135-145)
[2025-01-03 19:29] LABS: Carbon Dioxide 22.7 mmol/L (21.6-31.8)
== END | disposition home or self-care (01) ==
LOC: LABWHC1 11:57
PROVIDERS: ATTEND Internal Medicine
DX: Z01.812 Encounter for preprocedural laboratory examination (principal); I25.10 Atherosclerotic heart disease of native coronary artery without angina pectoris
CPT/HCPCS: 36415; 80051; 82565; 84520; 85027

== ENCOUNTER 2025-02-04 05:37 | Day surgery (SDC) | payer MEDICARE ==
[2025-02-04] MEDS ORDERED: NITROGLYCERIN SL TABS 0.4 MG TAB SUBLINGUAL PRN (06:03)
[2025-02-04] MEDS ORDERED: ALPRAZolam 0.5 MG TAB PO PRN (06:03)
[2025-02-04] MEDS ORDERED: ALPRAZolam 0.25 MG TAB PO PRN (06:03)
[2025-02-04] MEDS: ASPIRIN 81 MG PO STA (06:29)
[2025-02-04 06:46] VITALS: TEMP 98.1
[2025-02-04] MEDS: ASPIRIN 325 MG TAB PO STA (06:55)
[2025-02-04] MEDS: IV FLUID CONTINUATION 1,000 ML IV ONE (06:56)
[2025-02-04] MEDS: SODIUM CHLORIDE 0.9% 1,000 ML in EMPTY BAG 1 BAG IV SCH (06:56)
[2025-02-04] MEDS: MIDAZOLAM 2 MG/2 ML VIAL IVP ONE (07:30)
[2025-02-04] MEDS: fentaNYL (PF) 50 MCG/ML 2 ML AMP IVP ONE (07:31)
[2025-02-04] MEDS: HEPARIN SODIUM,PORCINE (1 ML) 2,500 UNIT in SODIUM CHLORIDE 0.9% 250 ML IRRIGATION PRN (07:33)
[2025-02-04] MEDS: HEPARIN SODIUM,PORCINE 10,000 UNIT in SODIUM CHLORIDE 0.9% 1,000 ML IRRIGATION PRN (07:33)
[2025-02-04] MEDS: LIDOCAINE 1% INJ 10MG/ML (20 ML MDV) SQ ONE (07:34)
[2025-02-04] MEDS: VERAPAMIL SYRINGE (5 MG/10 ML) INTRAARTER ONE (07:36)
[2025-02-04] MEDS: HEPARIN SODIUM 1,000 UN/ML (10ML VL) IV ONE ×2 (07:40→07:49)
[2025-02-04] MEDS: CLOPIDOGREL 75 MG TAB PO ONE (08:03)
[2025-02-04] MEDS: HEPARIN SODIUM 1,000 UN/ML (10ML VL) IVP ONE (08:14)
[2025-02-04] MEDS: NITROGLYCERIN 1000MCG/10ML SYRINGE INTRACORON ONE ×2 (08:18→08:27)
[2025-02-04] MEDS: IOPAMIDOL-370 100ML BTL INTRATHECA ONE (08:27)
[2025-02-04] MEDS ORDERED: QUEtiapine 25 MG TAB PO PRN (08:51)
[2025-02-04] MEDS ORDERED: MAG HYDROX/AL HYDROX/SIMETH 30 ML CUP PO PRN (08:52)
[2025-02-04] MEDS ORDERED: ATROPINE SULFATE 0.1 MG/ML 10ML SYRINGE IV PRN (08:52)
[2025-02-04] MEDS ORDERED: RX INFO: IV CONTRAST WAS GIVEN 1 EACH MISC MISCELLANE PRN (08:52)
[2025-02-04] MEDS ORDERED: ZOLPIDEM 5 MG TAB PO PRN (08:52)
[2025-02-04] MEDS ORDERED: METOPROLOL SUCCINATE (ER) 25 MG TAB.ER.24H PO SCH (09:00)
[2025-02-04] MEDS ORDERED: SERTRALINE 50 MG TAB PO SCH (09:00)
[2025-02-04] MEDS ORDERED: ATORVASTATIN 40 MG TAB PO SCH (09:00)
[2025-02-04] MEDS ORDERED: ASPIRIN 81 MG PO SCH (09:00)
--- NOTE | 2025-02-04 09:01 | P.PRCINT ---
Percutaneous Coronary Int. - Percutaneous Coronary Intervention Percutaneous Coronary Intervention: PROCEDURES PERFORMED: Left heart catheterization, bilateral coronary angiography, ultrasound guided arterial access, RFR (iFR) LAD and RCA, PCI of mid LAD with 2.5 x 15 mm Xience JOSE MANUEL, postdilated with a 3.5 mm noncompliant balloon, intravascular ultrasound LAD INDICATION: Dyspnea on exertion with known CAD worsening with near card association class III symptoms despite antianginals CONSENT:I have discussed the risks, benefits and alternative therapies for the above-mentioned procedure and for both sedation/analgesia as well as necessary blood product administration, if indicated, as they pertain to this patient. The patient has indicated understanding and acceptance of the risks and procedures discussed. PROCEDURE: After the risks, benefits and alternatives of the above mentioned procedure explained in detail with the patient, informed consent was obtained. Patient was taken to the catheterization lab and prepped and draped in usual fashion. Ultrasound guidance was used to assess for arterial access. 1% lidocaine was used to anesthetize the right radial artery. A 6-Afghan sheath was placed in the right radial artery using modified Seldinger technique and ultrasound guidance. Left coronary angiography was performed with a 5-Afghan JL 3.5 catheter and right coronary angiography was performed with a 5-Afghan AR2 catheter in various views. A 5-Afghan AR2 catheter was inserted into the left v entricle and pressure measurements were obtained. The decision was made to perform functional assessment of both RCA and LAD. A 0.014 wire was advanced into the proximal RCA and normalized and then advanced into the mid RCA. RFR (iFR) was performed and was normal at 0.93. There was no gradient with pullback. Next functional assessment was performed with the LAD. The 0.014 pressure wire was advanced into the left main and normalized. It was then advanced into the mid to distal LAD and RFR was performed and was abnormal at 0.75. There was fairly gradual pressure gradient across most of the LAD however majority appeared to be at the mid LAD lesion. Therefore decision made to perform PCI of the LAD. Heparin had been given. A 6 Afghan CLS 3.5 guide was used to engage the left main. A 0.014 BMW wire was advanced in the distal LAD. Predilation was performed with a 2.5 mm balloon. Intravascular ultrasound was performed which showed diffuse disease with the left main 30 to 40% stenosis and minimal luminal area of 6.1 mm. The LAD had more diffuse disease distally however more focal lesion with proximal portion of the lesion reference vessel 3.5 mm and distal 2.5 mm. Therefore a 2.5 x 15 mm drug-eluting stent was placed in the mid LAD. The proximal portion of the stent was postdilated with a 3.5 mm noncompliant balloon. Repeat intravascular ultrasound showed excellent stent apposition with no dissection. Final angiograms were performed. Preintervention there was 60 to 70% LAD stenosis with ESTEFANI-3 flow and postintervention there was less than 10% stenosis with ESTEFANI-3 flow. The right radial sheath was removed and a TR band was placed with hemostasis achieved. The patient tolerated the procedure well. Patient was transported back to the post catheterization holding area in stable condition. Conscious Sedation: Patient was monitored under the direct supervision of myself for conscious sedation using Versed and fentanyl for a total duration of 63 minutes HEMODYNAMICS: Aorta: 138/72 LV: 145/5, LVEDP 14, mean gradient 14 mm across the valve SELECTIVE CORONARY ARTERIOGRAPHY: LEFT MAIN: The left main is a large caliber vessel which bifurcates into the LAD and circumflex. There is 30 to 40% left main stenosis. LEFT ANTERIOR DESCENDING CORONARY ARTERY: LAD is a large caliber vessel which wraps around to the apex. There is diffuse 30 to 40% stenosis with more focal mid LAD 60 to 70% stenosis. LEFT CIRCUMFLEX CORONARY ARTERY: Left circumflex is a moderate caliber vessel with mild disease and 30 to 40% OM1 stenosis which is small caliber. RIGHT CORONARY ARTERY: The right coronary artery is a large caliber vessel which gives off a PDA and PLV branch and is the dominant vessel. There are mild luminal irregularities other than a ostial RCA 50 to 60% stenosis FINAL IMPRESSION: 1. CAD as described above including 30 to 40% left main stenosis, diffuse mild to moderate 30 to 40% LAD stenosis with more focal 60 to 70% mid LAD stenosis, ostial RCA 50 to 60% stenosis 2. Normal left sided filling pressures 3. Mild aortic stenosis with mean gradient 14 mmHg across the valve 4. Normal RFR of RCA, abnormal RFR of LAD 5. Status post PCI of mid LAD with 2.5 x 15 mm Xience JOSE MANUEL, postdilated with a 3.5 mm noncompliant balloon PLAN: 1. Aggressive risk factor modification per most recent ACC/AHA guidelines. 2. Continue dual antiplatelets with aspirin and Plavix for 6 months 3. Goal LDL less than 70
[2025-02-04 10:49] VITALS: RESP 18
[2025-02-04 12:11] VITALS: PULSE 58
[2025-02-04 12:34] VITALS: BP 125/53
[2025-02-05] MEDS ORDERED: CLOPIDOGREL 75 MG TAB PO SCH (09:00)
== END 2025-02-04 13:00 | disposition home or self-care (01) ==
LOC: CATHCVL 05:37
PROVIDERS: ATTEND Internal Medicine
DX: I25.10 Atherosclerotic heart disease of native coronary artery without angina pectoris (principal); I10 Essential (primary) hypertension; I08.0 Rheumatic disorders of both mitral and aortic valves; G89.29 Other chronic pain; Z79.899 Other long term (current) drug therapy; Z86.74 Personal history of sudden cardiac arrest; Z86.711 Personal history of pulmonary embolism; Z95.810 Presence of automatic (implantable) cardiac defibrillator
CPT/HCPCS: 92978; 93458; 93799; C1769 ×5; C9600; C1887; C1894; C1725 ×2; C1753; C1874; J2250; J1644 ×3; J2003; J3010; Q9967; J2305